=== PATIENT | male | born 1945 | race Caucasian/White ===

== ENCOUNTER → 2017-07-31 | Outpatient (CLI) | payer OTHER, BC ==
[~2017-07-31] VITALS: Ht 182.9 cm; Wt 81.6 kg
[~2017-07-31] MED LIST: ASPIR 8181 MG PO; CENTRUM SILVER1 EAC4 PO; COZAAR 50 MG TA50 M2 PO; FINASTERIDE5 MG PO; PROTONIX40 M2 PO; ZOCOR20 MG PO
--- NOTE | ~2017-07-31 | S ---
[facility] [place] [address] SURGICAL PATH RPT PROCEDURE Name: KIMBERLI GUY Room #: REG [facility].#: [id number] Admission: 07/31/17 Date of : 43 Discharge: Report #: [id number] Path Case #: [id number] PATHOLOGY REPORT COLLECTION DATE: 07/31/2017 RECEIVED DATE: 07/31/2017 SUBMITTING PHYS: Dr. George Garcia OTHER PHYS: SPECIMEN(S) RECEIVED: A.Gastritis B.Polyp at rectum * * * * * * * * * * * * FINAL DIAGNOSIS: A. Gastritis: - Mild chronic inactive gastritis. - An H. pylori immunostain is negative (Block A1; appropriately reactive control). B. Polyp at rectum: - Tubular adenoma. - Negative for high grade dysplasia. PATHOLOGIST: Irvin Mathews M.D. REPORT ELECTRONICALLY SIGNED BY: Irvin Mathews M.D. DATE/TIME: 08/03/2017 10:20 * * * * * * * * * * * * GROSS PATHOLOGY: A. Received in formalin labeled "Kimberli Guy, BX of gastritis," are 5 segments of kent soft tissue measuring 1.2 x 0.6 x 0.1 cm in aggregate dimensions and ranging from 0.2 to 0.7 cm in maximum dimension. The specimen is submitted entirely in cassette A1. B. Received in formalin labeled "Kimberli Guy, polyp at rectum," is a segment of kent soft tissue measuring 0.6 x 0.4 x 0.2 cm in maximum dimension. The specimen is submitted entirely in cassette B1. (SDY; 07/31/2017) CLINICAL HISTORY: History of GERD/polyps Rectal polyp, diverticulosis INITIAL CPT CODE(S): A; 07395, 81874 B; [address] [facility] [place] [address] SURGICAL PATH RPT PROCEDURE Name: KIMBERLI GUY Room #: REG [facility] Chuck.#: [id number] Admission: 07/31/17 Date of : 43 Discharge: Report #: [id number] Path Case #: [id number] Professional services performed by [facility] at [address], [place] [address] Technical services performed by [facility] at [address] [place] [address], [facility] [address] [address]. [facility] [address] [place] [address] PHONE: [phone] DIRECTOR: Theo Vincent M.D. * * * END OF REPORT * * *
--- NOTE | ~2017-07-31 | P ---
[facility] [place] [address] PROCEDURE REPORT Name: ARTEMPRANEETHKIMBERLI Dayna Room #: REG [facility]#: [id number] Admission: 07/31/17 Attend Phys: George Garcia MD Discharge: Date of : 43 Report #: [id number] THIS REPORT FOR: //name// CC: [facility] physician/PCP George Garcia BRIEF HISTORY: The patient is a 72-year-old male with longstanding history of reflux disease. PREOPERATIVE DIAGNOSIS: Gastroesophageal reflux disease. POSTOPERATIVE DIAGNOSES: Mild diffuse gastritis with a few scattered erosions. MEDICATIONS: Deep sedation with propofol per anesthesia. SPECIMEN: Biopsies of gastritis. ESTIMATED BLOOD LOSS: 3 mL. PROCEDURE: EGD with biopsy. FINDINGS: Prior to propofol sedation, procedure of upper endoscopy discussed with the patient as well as potential risks, benefits, and complications. He indicates he understands and desires to proceed. With the patient in left lateral decubitus position, the Evisorsi video endoscope was inserted in the cervical esophagus under direct vision without difficulty. Examination of this organ through its entire length revealed normal esophageal mucosa down to the squamocolumnar junction. The squamocolumnar junction was inspected and noted to be unremarkable. There is no evidence of Almeida esophagus, strictures, masses, ulcers or hiatus hernia. The scope was advanced into the stomach, which was examined on end view as well as retroflexed views. There was a mild gastritis with mild streaky erythema, a couple of small erosions were seen. Biopsies were obtained of the gastritis. Upon retroflexion, no mass lesions were seen in the cardia. The pylorus, duodenal bulb, and postbulbar sweep were then inspected and noted to be unremarkable. At that point, the scope was slowly withdrawn and careful circumferential views confirmed the above findings. The patient tolerated the procedure well. CONDITION OF THE PATIENT UPON DISCHARGE: Following procedure, the patient drowsy and prepared for colonoscopy. INSTRUCTIONS TO THE PATIENT AND FAMILY AT THE TIME OF DISCHARGE: The patient with findings as noted above. He is currently using pantoprazole. He should use the pantoprazole at a lowest dose as possible to control symptoms. When he has good control, he may try to reduce it to less than daily. In addition, [facility] [address] [place] [address] PROCEDURE REPORT Name: BROOKSKIMBERLI Dayna Room #: REG [facility]#: [id number] Admission: 07/31/17 Attend Phys: George Garcia MD Discharge: Date of : 43 Report #: [id number] there is no evidence of Almeida mucosa on exam today. We will proceed with colonoscopy at this time. <ELECTRONICALLY SIGNED> By: George Garcia MD 08/02/17 1942 [id number] [id number] George Garcia MD /nt
--- NOTE | ~2017-07-31 | P ---
[facility] [place] [address] PROCEDURE REPORT Name: BROOKSKIMBERLI Mcintosh Room #: REG [facility]#: [id number] Admission: 07/31/17 Attend Phys: George Garcia MD Discharge: Date of : 43 Report #: [id number] THIS REPORT FOR: //name// CC: [facility] physician/PCP George Garcia DATE OF SERVICE: 07/31/2017 BRIEF HISTORY: The patient is a 72-year-old male for high risk screening colonoscopy due to previous history of colon polyps. PREOPERATIVE DIAGNOSIS: High risk screening colonoscopy. POSTOPERATIVE DIAGNOSES: 1. A 5 mm sessile polyp, rectum. 2. Small internal hemorrhoids. 3. Few scattered sigmoid diverticula. MEDICATIONS: Deep sedation with propofol per anesthesia. SPECIMEN: Rectal polyp. ESTIMATED BLOOD LOSS: 3 mL. PROCEDURE: Colonoscopy to cecum and terminal ileum with snare polypectomy. FINDINGS: Prior to propofol sedation, procedure of colonoscopy discussed with the patient as well as potential risks and its complications. He indicates he understands and desires to proceed. DESCRIPTION OF PROCEDURE: With the patient in left lateral decubitus position, digital examination was completed which revealed no abnormalities. Subsequently, the CosmosID video colonoscope was introduced into the rectum and advanced under direct vision to the cecum. This was done with minimal difficulty. The cecum was identified by the ileocecal valve and the appendiceal orifice. I was able to visualize the distal segment of terminal ileum, which was inspected and noted to be unremarkable. At that point, the scope was slowly withdrawn and careful circumferential views obtained including retroflexing the scope in the ascending colon. On slow withdrawal of the scope, the prep was noted to be good. Mucosa was within normal limits, normal vascular pattern, normal light reflex. As we withdrew the scope, he was noted to have normal mucosa throughout the colon. No abnormalities were noted until the sigmoid colon was reached and an occasional scattered diverticulum was seen. There is no endoscopic evidence of diverticulitis. Scope was withdrawn in the rectum and in the mid rectum, a 5 mm sessile polyp was seen and removed by cold snare [facility] [address] [address] PROCEDURE REPORT Name: KIMBERLI GUY [id number] Admission: 07/31/17 Attend Phys: George Garcia MD Discharge: Date of : 43 Report #: [id number] polypectomy. Scope was withdrawn. The patient tolerated procedure well. CONDITION OF THE PATIENT UPON DISCHARGE: Following procedure, the patient drowsy, aroused, conversant and will be discharged home when fully ambulatory. INSTRUCTIONS TO THE PATIENT AND FAMILY AT THE TIME OF DISCHARGE: We will follow up on the path of polyp. If this is an adenoma, he should return in 5 years for surveillance colonoscopy. However, if this rectal polyp is hyperplastic, then 10 years would be indicated. After the age of 79, I would base followup recommendations on his overall health status at that time. If longevity appears to be good of at least 7-8 years, colonoscopy after age 79 would be reasonable. He will return to the care of Dr. George Ag and return to see me as needed. Last colonoscopy was in 12/2012. Withdrawal time from the cecum was 17 minutes 20 seconds. <ELECTRONICALLY SIGNED> By: George Garcia MD 08/02/17 1942 0830 05 George Garcia MD /nt
== END | disposition home or self-care (01) ==
LOC: GI 06:31
DX: Z09 Encounter for follow-up examination after completed treatment for conditions other than malignant neoplasm (principal); K62.1 Rectal polyp; K64.8 Other hemorrhoids; K57.30 Diverticulosis of large intestine without perforation or abscess without bleeding; K29.70 Gastritis, unspecified, without bleeding; I10 Essential (primary) hypertension; E78.5 Hyperlipidemia, unspecified; Z90.49 Acquired absence of other specified parts of digestive tract; Z98.42 Cataract extraction status, left eye; Z96.641 Presence of right artificial hip joint; Z85.46 Personal history of malignant neoplasm of prostate; Z98.890 Other specified postprocedural states; Z79.899 Other long term (current) drug therapy; Z88.8 Allergy status to other drugs, medicaments and biological substances; Z79.82 Long term (current) use of aspirin
CPT/HCPCS: 62110; 62900